=== PATIENT | female | born 1975 | race Caucasian/White ===

== ENCOUNTER 2022-08-11 05:05 | Observation (INO) ==
--- NOTE | 2022-08-09 15:06 | Anesthesiology Consultation ---
Date of Service August 09, 2022 Assessment & Plan (1) Encounter for pre-operative examination: Plan - COVID screening: Per auto carrier driver on 08/09/2022: Travel screen negative, no known COVID-19 positive contacts or current COVID-19 related symptoms in past 2 weeks. To surgeon's discretion if preop COVID testing is needed. Chart Review Chart Review: Acceptable Risk for Surgery and Patient NOT seen in Pre Admission Testing History Surgery Operation Date: 08/11/22 08:10 Proposed Procedures p Laparoscopic Cholecystectomy, Cholangiogram, Possible Open - Marcel Mejia MD, FACS Height/Weight Height: 5 ft 3.5 in Weight: 95.254 kg Allergies Allergy/AdvReac Type Severity Reaction Status Date / Time No Known Allergies Allergy Verified 08/09/22 14:45 Medications Home Medications Medication Instructions Recorded Confirmed Last Taken No Known Home Medications 08/09/22 08/09/22 Unknown Past Medical History Medical History (Updated 08/09/22 @ 15:04 by Dari Jara PA-C) Cholelithiases Renal cyst Past Family History Family History Mother Colorectal cancer Past Surgical History Surgical History History of tubal ligation History of wisdom tooth extraction Social History Smoking Status: Current every day smoker tobacco type: cigarettes Smoking cigarettes per day: 1 ppd Do You Dip or Chew Tobacco: No Hx Alcohol Use: No Hx Substance Use: No substance use type: does not use Lab Results Anesthesia Preop Results Results Anesthesia Widget: WBC 5.50 K/ul (4.8-10.8) 08/06/22 Hgb 15.5 g/dl (12.0-16.0) 08/06/22 Hct 44.5 % (37.0-47.0) 08/06/22 Plt 181 K/uL (130-400) 08/06/22 Na 137 mmol/L (136-145) 08/06/22 K 4.2 mmol/L (3.5-5.1) 08/06/22 Cl 107 mmol/L (98-107) 08/06/22 CO2 24 mmol/L (21-32) 08/06/22 BUN 9 mg/dl (6-23) 08/06/22 Creat 0.63 mg/dl (0.6-1.2) 08/06/22 Glucose Level 106 mg/dl (70-99(Fasting)) H 08/06/22 Urine Color Dark Yellow 08/06/22 Urine Appearance Cloudy (Clear) A 08/06/22 Urine pH 5.5 (4.5-7.5) 08/06/22 Urine Specific Pringle 1.023 (1.000-1.030) 08/06/22 Urine Protein Trace (Negative) H 08/06/22 Urine Glucose (UA) Negative (Negative) 08/06/22 Urine Ketones 1+ (Negative) H 08/06/22 Urine Blood 3+ (Negative) H 08/06/22 Urine Nitrite Negative (Negative) 08/06/22 Urine Bilirubin Negative (Negative) 08/06/22 Urine Urobilinogen Positive (Negative) H 08/06/22 Urine Leukocyte Esterase Trace (Negative) H 08/06/22 Urine WBC (Auto) 5-10 /hpf (0-5) H 08/06/22 Urine RBC (Auto) >30 /hpf (0-4) H 08/06/22 Urine Hyaline Casts (Auto) 1-5 /lpf (0-5) 08/06/22 Urine Epithelial Cells (Auto) >30 /lpf (0-5) H 08/06/22 Urine Bacteria (Auto) 2+ (Negative) H 08/06/22 SARS-CoV-2, RNA, NAAT NEGATIVE (NEGATIVE) 08/06/22 Testing Chest X-Ray Date: 08/06/22 *1view* No acute process
[2022-08-11] MEDS ORDERED: LR 15ML/HR IV SCH (06:00)
--- NOTE | 2022-08-11 06:21 | History & Physical Bridge Note ---
Date of Service August 11, 2022 History & Physical Bridge Note I have examined the patient, reviewed the History & Physical and in the interval since the performance of the History & Physical I have noted the following changes of clinical significance: no changes noted still nauseated since last seen SO at bedside ruq guarding all question answered
[2022-08-11] MEDS ORDERED: HYDROmorphone INJ 1 MG/ML SYRINGE IV PRN (06:46)
[2022-08-11] MEDS ORDERED: ePHEDrine sulfate 50 MG/ML AMP IV PRN (06:46)
[2022-08-11] MEDS ORDERED: NALOXONE HCL 0.4 MG/1 ML VIAL/CARP IV PRN (06:46)
[2022-08-11] MEDS ORDERED: LABETALOL HCL IV 5 MG/ML 20ML IV PRN (06:46)
[2022-08-11] MEDS ORDERED: PROMETHAZINE HCL 12.5 MG in SODIUM CHLORIDE 0.9% 50 ML IV PRN (06:46)
[2022-08-11] MEDS ORDERED: ONDANSETRON INJ 2 MG/ML 2 ML VIAL IV PRN ×2 (06:46→10:03)
[2022-08-11] MEDS ORDERED: FLUMAZENIL 0.1 MG/1 ML 10 ML VIAL IV PRN (06:46)
[2022-08-11] MEDS ORDERED: ATROPINE SULFATE 0.1 MG/ML 10ML SYR IV PRN (06:46)
[2022-08-11] MEDS ORDERED: MIDAZOLAM HCL 1 MG/ML 2ML VIAL ONE (06:48)
[2022-08-11] MEDS ORDERED: fentaNYL citrate PF 100 MCG/2 ML VIAL ONE ×2 (06:49→07:14)
[2022-08-11] MEDS ORDERED: LIDOCAINE 1%/EPINEPHRINE 1:100,000 20 ML VIAL ONE (06:56)
[2022-08-11] MEDS ORDERED: ACETAMINOPHEN 1000 MG/100 ML IV IV ONE (07:03)
[2022-08-11] MEDS ORDERED: ONDANSETRON INJ 2 MG/ML 2 ML VIAL ONE (07:12)
[2022-08-11] MEDS ORDERED: DEXAMETHASONE SOD INJ 4 MG/ML VIAL ONE (07:12)
[2022-08-11] MEDS ORDERED: ROCURONIUM BROMIDE 10 MG/ML 5 ML VIAL IV ONE (07:12)
[2022-08-11] MEDS ORDERED: PROPOFOL IV EMULSION 10 MG/ML 20 ML VIAL IV ONE (07:12)
[2022-08-11] MEDS ORDERED: LIDOCAINE 2% 2 ML VIAL/AMP(20MG/ML) INFIL ONE (07:12)
[2022-08-11] MEDS ORDERED: SUGAMMADEX SODIUM 200 MG/2 ML VIAL IV ONE (07:13)
[2022-08-11] MEDS ORDERED: PHENYLEPHRINE HCL 10 MG/ML VIAL ONE (07:33)
[2022-08-11] MEDS ORDERED: GLUCAGON FOR INJ 1 MG VIAL ONE (07:58)
[2022-08-11] MEDS ORDERED: KETOROLAC 30 MG/ML VIAL ONE (08:29)
--- NOTE | 2022-08-11 08:31 | Post Operative Brief Note ---
Immediate Post Op Note v1 Date of Surgery August 11, 2022 Pre & Post Diagnosis Operation Date: 08/11/22 07:00 Pre-Op Diagnosis: Cholelithiasis Post-Op Diagnosis: Cholelithiasis I identified the patient and participated in the time-out.: Yes Procedure Operation Date: 08/11/22 07:00 Actual Procedures p Laparoscopic Cholecystectomy, Cholangiogram(Not Applicable) - Marcel Mejia MD, FACS Surgeon Marcel Mejia MD, FACS [employer] [place] KLINE Estimated Blood Loss 10 Findings Consistent with Post-Op Diagnosis Drains Pauline Drain (RUQ 19f pauline drain)
[2022-08-11] MEDS: fentaNYL citrate PF 100 MCG/2 ML VIAL IV PRN ×2 (08:52→08:57)
--- NOTE | 2022-08-11 09:17 | Operative Report ---
PG Post Operative Report Pre & Post Diagnosis Operation Date: 08/12/22 11:40 <No data on this case meets the specified criteria> I identified the patient and participated in the time-out.: Yes Procedure Operation Date: 08/12/22 11:40 <No data on this case meets the specified criteria> Laparoscopic cholecystectomy intraoperative cholangiogram The patient was brought into the operating theater general trach anesthesia supine position the abdomen was prepped byline solution properly draped systemic antibiotics on board a timeout was had we made a small incision supraumbilically sufficient to accommodate 2 Sara clamps that were inserted to grab the anterior abdominal wall sufficiently to place a Veress needle followed by CO2 followed by 5 mm trocar point of entry specter no injury identified on the regularization 5 mm epigastric to 5 mm subcostal ports were inserted with preemptive local analgesic the patient at almost an intrahepatic gallbladder the left lobe of the liver was encapsulating good portion of it the usual right lateral port to grab the gallbladder and elevated then the left lobe of the liver needed to be mobilized with use necessitated placing another 5 mm port on the right realization left upper quadrant so that we can insert a fan retractor gallbladder was placed under traction we took our dissection towards the neck of the gallbladder and identified a very large cystic duct well away from the common bile duct we could visualize therefore at this point we encircled the cystic duct with a right angle clamp so we were able to free it from the surrounding tissue placed a 5 mm clip proximally a small opening cystic duct was made #4 urethral catheter transversing abdominal wall and Angiocath was positioned serial x-rays were taken which showed obstruction of the distal common bile duct very long corkscrew cystic duct no obvious large filling defects appreciated but the common bile duct was dilated at this point I elected to flush it after given glucagon and taken multiple x-rays we really were not able to clear the duct of any obstruction at this point we remove the urethral catheter and migrated down the cystic duct bed to able to doubly clipped securely the remaining cystic duct gallbladder was then removed in the antegrade fashion identifying the artery doubly clipped and its in some accessory artery similarly clipping taken out the gallbladder leaving much posterior peritoneum was possible and placed the gallbladder in an Endopouch and taken out intact through the epigastric port patient has significant amount of bilirubinate stones noticed in the specimen subhepatic suprahepatic area was then suctioned out copiously in anticipation of the ERCP I elected to place a 19 Davy drain subhepatic leak taken out laterally on his right upper quadrant trocar site fascia skin edges 2-0 silk the wounds were then checked for entry site bleeding of the trocars and they were all free of any bleeding as we individually removed we had placed the camera right upper quadrant trocar to visualize the initial entry in the umbilical area which was no injury identified wounds were closed with 3-0 Vicryl Steri-Strips applied procedure was tolerated well by the patient estimate blood loss 10 cc addendum Shea Schilling physician training program assistant was present throughout the procedure and helped the retraction exposure wound closure Surgeon Marcel Mejia MD, FACS [employer] [place] KLINE Estimated Blood Loss 10 Findings Consistent with Post-Op Diagnosis Chronic cholecystitis cholelithiasis choledocholithiasis Specimens Gallbladder and cannot Drains 19 round Davy drain Complications None Indications Chronic cholecystitis cholelithiasis with abdominal this pain Description of Procedure merda I attest to the content of the Intraoperative Record and any orders documented therein. Any exceptions are noted below.
--- NOTE | 2022-08-11 09:29 | Anesthesiology Progress Note ---
Date of Service August 11, 2022 Anesthesia Post Procedure Vital Signs Vital Signs: Temp Pulse Resp BP Pulse Ox O2 Del Method O2 Flow Rate 08/11/22 09:05 73 21 137/69 100 Oxymask 2 08/11/22 09:15 36.2 C L 72 19 123/68 97 Room Air 08/11/22 08:55 77 20 128/79 98 Oxymask 5 08/11/22 08:47 36.3 C L 86 26 H 143/76 H 97 Oxymask 5 08/11/22 05:32 36.7 C 74 20 119/75 100 Room Air Pain Intensity Abdomen: Pain Intensity: 8 Shoulder: Pain Intensity: 6 Transfer of Care Handoff Completed per policy Notes Mental Status: alert / awake / arousable Patient Amnestic to Procedure: Yes Nausea / Vomiting: adequately controlled Pain: adequately controlled Airway Patency, RR, SpO2: stable & adequate BP & HR: stable & adequate Hydration State: stable & adequate Anesthetic Complications: no major complications apparent
[2022-08-11] MEDS ORDERED: MoRPHine SULFATE 4 MG/ML 1 ML CARP\\VIAL IV PRN (10:03)
[2022-08-11] MEDS ORDERED: GLUCOSE 10 TAB/TUBE PO PRN (10:03)
[2022-08-11] MEDS ORDERED: MoRPHine SULFATE 2 MG/ML CARP IV PRN (10:03)
[2022-08-11] MEDS ORDERED: CARBOHYDRATES FOR HYPOGLYCEMIA PO PRN (10:03)
[2022-08-11] MEDS ORDERED: ACETAMINOPHEN 1,000 MG/100 ML VIAL IV PRN (10:03)
[2022-08-11] MEDS ORDERED: DEXTROSE 50% 50 ML SYRINGE IV PRN (10:03)
[2022-08-11] MEDS ORDERED: GLUCAGON FOR INJ 1 MG VIAL SQ PRN (10:03)
[2022-08-11] MEDS ORDERED: GLUCOSE 40% GEL 15 GM TUBE PO PRN (10:03)
--- NOTE | 2022-08-11 10:21 | Fluoroscopy Report ---
[place] cholangiogram OR CLINICAL HISTORY: Cholangiogram. COMPARISON STUDY: Right upper quadrant ultrasound August 06, 2022. FLUOROSCOPY TIME: 6 seconds. Ka, r: 1.42 mGy FLUOROSCOPIC IMAGES: 5 FINDINGS: Fluoroscopy was provided during intraoperative cholangiogram. The cystic duct was cannulate d and contrast was injected. No definite filling defects within the common bile duct are identified. No contrast within the duodenum is noted. Intrahepatic bile ducts are partially opacified. IMPRESSION: No definite filling defects within the common bile duct however no contrast within the d uodenum. ACT 112: Negative or not required by law. Electronically signed by: Abdifatah Juarez M.D. 08/11/2022 10:20 AM
--- NOTE | 2022-08-11 11:01 | Gastrointestinal Consultation ---
Date of Consultation August 11, 2022 Assessment & Plan (1) Choledocholithiasis: Plan 1. Clear liquids po today. 2. NPO after midnight 3. Plan for ERCP tomorrow by Dr. Ray. Supervising Physician Co-Signing Physician Notes I performed a history and physical examination of the patient today, including specifically on physical exam - soft abdomen. I have discussed the patient's management with the advanced practitioner. Please refer to the nurse practitioner's note for the documented findings and plan of care. ERCP tomorrow. History of Present Illness Reason for Consultation: +IOC Requesting Physician: Shea Corbett PA-C Attending Physician: Marcel Mejia MD, [facility] History of Present Illness Ms. Cheli Adams is a 46 yr old female who underwent Lap choley this morning by Dr. Mejia. Intra operative cholangiogram suggested a stone in the bile duct. GI is consulted to arrange ERCP. Pt reports 14 days of RUQ pain, waxing and waning but present every day, sought care at [facility] w chronic cholecystitis CT'ed w plans to see surgeon, but pain worsened and she presented to [facility] where cholecystectomy was completed. Pt "feels better now," tells me just pain at the incisions. She is awake, alert. Her is at the bedside. Allergies Allergy/AdvReac Type Severity Reaction Status Date / Time No Known Allergies Allergy Verified 08/11/22 05:36 Home Medications Medication Instructions Recorded Confirmed Type No Known Home Medications 08/09/22 08/11/22 History Patient History Medical History (Updated 08/11/22 @ 11:03 by CARLOS Goff) Cholelithiases Renal cyst Surgical History History of tubal ligation History of wisdom tooth extraction Family History Mother Colorectal cancer Social History Smoking Status: Current every day smoker Tobacco Type: Cigarettes Cigarettes Per Day: 1 ppd; Second Hand Exposure: No; Do You Dip or Chew Tobacco: No; Tobacco Cessation Education Requested by Patient: No Hx Alcohol Use: No Hx Substance Use: No Preferred Language: Uzbek Communication Ability: Effective General Maintenance Technician Required: No Beliefs That Will Affect Care: None Current Living Situation: Family current occupational status: unemployed How many Children do You have: 2 Feels Safe at Home: Yes Safety Concerns: Feels Safe At This Time during the past year weight has: decreased > 10 lbs Assistive Devices: Denture - Upper and Denture - Lower Assistive Devices Comment: lower partial Review of Systems Review of Systems: ROS: Gen: Denies weakness, fevers, weight loss Eyes: No eye redness, or pain, no recent vision changes Resp: No SOB, no cough Cardio: No palpitations/irregular beats, no chest pain GI: As per HPI, otherwise negative. : Denies pain on urination Skin: No jaundice, itching or new rashes Physical Exam Constitutional: WD/WN, vitals as above Eyes: PERRL, conjunctivae normal, anicteric sclerae ENMT: external ear and nose normal, oropharynx normal Neck: trachea midline, no thyromegaly Respiratory: normal respiratory effort, lungs clear to auscultation Cardiovascular: RRR, no murmur, no edema Gastrointestinal (Abdomen): Hypoactive BS present, abd is soft, non distended. Dressings are dry. Skin: no rashes, warm and dry Neurologic: PERRL, EOMI, accommodation nl, no face palsy, no dysarthria Psychiatric: A+Ox3, euthymic affect Lymphatic: no cervical or axillary lymphadenopathy Results & Data Vital Signs (Past 12 Hours) Vital Signs Temp Pulse Pulse Resp BP Pulse Ox O2 Del Method 08/11/22 10:25 36.4 C L 65 18 124/78 96 Room Air 08/11/22 09:05 73 21 137/69 100 Oxymask 08/11/22 09:35 71 19 120/65 96 Room Air 08/11/22 09:25 79 20 112/61 95 Room Air 08/11/22 09:15 36.2 C L 72 19 123/68 97 Room Air 08/11/22 08:55 77 20 128/79 98 Oxymask 08/11/22 08:47 36.3 C L 86 26 H 143/76 H 97 Oxymask 08/11/22 05:32 36.7 C 74 20 119/75 100 Room Air O2 Flow Rate 08/11/22 10:25 08/11/22 09:05 2 08/11/22 09:35 08/11/22 09:25 08/11/22 09:15 08/11/22 08:55 5 08/11/22 08:47 5 08/11/22 05:32 Laboratory Results Labs 08/06/2022 WBC 5, Hb 15, HCT 44, PLT S21, NA 137, K4.2, CL 107, CO2 24, BUN 9, CR 0.63, glucose 106, T. bili 0.8, AST 76, ALT 41, alk phos 59 Diagnostic Findings Cholangiogram today: No definite filling defects within the common bile duct however no contrast within the duodenum.
[2022-08-11] MEDS: cefOXitin 2,000 MG in DEXTROSE 5% 50 ML IV SCH ×3 (11:19→21:48)
[2022-08-11] MEDS: LACTATED RINGER'S 1,000 ML IV SCH ×2 (11:19→19:42)
[2022-08-12] MEDS: cefOXitin 2,000 MG in DEXTROSE 5% 50 ML IV SCH ×2 (05:09→10:30)
[2022-08-12 07:34] LABS: Basophils # (auto) 0.03 K/uL (0-0.2); Basophils % (auto) 0.6 %; Eosinophils # (auto) 0.05 K/uL (0-0.50); Hematocrit (blood only) 38.3 % (37.0-47.0); Hemoglobin 13.3 g/dl (12.0-16.0); Immature Granulocytes # (auto) 0.01 K/uL (0.01-0.20); Immature Granulocytes % (auto) 0.2 %; Lymphocytes # (auto) 1.77 K/uL (1.2-3.4); Mean Corpuscular Hemoglobin 31.1 pg (25.0-34.0); Mean Corpuscular Hgb Conc 34.7 g/dL (32.0-36.0); Mean Corpuscular Volume 89.5 fL (80.0-100.0); Mean Platelet Volume 12.4 fL (9.4-12.4); Monocytes # (auto) 0.33 K/uL (0.11-0.59); Monocytes % (auto) 6.9 %; Neutrophils % (auto) 54.3 %; Platelet Count 156 K/uL (130-400); RDW Coefficient of Variation 12.3 % (11.5-14.5); RDW Standard Deviation 40.1 fL (36.4-46.3); Red Blood Count 4.28 M/uL (4.20-5.40); White Blood Count 4.79 K/ul (4.8-10.8)
--- NOTE | 2022-08-12 07:35 | Surgery Progress Note ---
Date of Service August 12, 2022 Assessment & Plan (1) Choledocholithiasis: Plan: Patient is first postoperative day status post laparoscopic cholecystectomy intraoperative cholangiogram there revealed common bile duct dilated with no contrast into the duodenum despite given glucagon This was discussed with the patient for need an ERCP which was discussed with the residential roofer yesterday and is planned for today Plan Once the ERCP is completed and okay with gastroenterology the patient to be discharged home instructions regarding what to her regarding her Davy drain management and follow-up in the office on Monday for drain removal Activity and pain management was similarly discussed with her Instructions went over with the patient Admission and Anticipated Discharge Date Admission Date: August 11, 2022 Subjective No complaints some abdominal soreness Physical Exam Physical Exam: Alert coherent sclera nonicteric Abdomen benign serous slightly sanguinous drainage from the Davy drain Results & Data Vital Signs (Past 12 Hours) Vital Signs Temp Pulse Pulse Resp BP BP Pulse Ox 08/12/22 07:28 36.5 C 63 16 131/82 96 08/12/22 04:00 37.0 C 65 16 126/77 97 08/12/22 00:00 36.9 C 72 16 124/79 98 08/11/22 19:50 36.6 C 65 18 124/80 97 O2 Del Method 08/12/22 07:28 Room Air 08/12/22 04:00 Room Air 08/12/22 00:00 Room Air 08/11/22 19:50 Room Air
[2022-08-12 07:57] LABS: Albumin Level 3.3 gm/dl (3.4-5.0); BUN Creatinine Ratio 16.4 (10-20); Bilirubin Direct 2.3 mg/dl (0-0.2); Bilirubin,Total 3.8 mg/dl (0.2-1.0); Calcium 8.6 mg/dl (8.6-10.3); Creatinine Clr Calc Pharmacy 143.2 ml/min; Est GFR (African American) 131.3 ml/min; Est GFR (Non-African American) 113.3 ml/min; Potassium 3.3 mmol/L (3.5-5.1); Total Protein 5.5 gm/dl (6.0-8.3)
[2022-08-12] MEDS: LACTATED RINGER'S 1,000 ML IV SCH (08:41)
--- NOTE | 2022-08-12 10:27 | History & Physical Bridge Note ---
Date of Service August 12, 2022 History & Physical Bridge Note I have examined the patient, reviewed the History & Physical and in the interval since the performance of the History & Physical I have noted the following changes of clinical significance: no changes noted ERCP Patient was explained in detail regarding risks, benefits, limitations and alternatives of the above endoscopic procedure. Risks of intravenous sedation used for procedure were also explained. Risks include, but not limited to perforation, bleeding, infection, respiratory distress, cardiac arrest and . Patient is also aware about the possibility of missed lesion. Patient's questions were answered. The patient verbalized understanding the information and agreed to undergo the procedure.
[2022-08-12] MEDS ORDERED: DEXAMETHASONE SOD INJ 4 MG/ML VIAL ONE (11:05)
[2022-08-12] MEDS ORDERED: PROPOFOL IV EMULSION 10 MG/ML 20 ML VIAL IV ONE (11:05)
[2022-08-12] MEDS ORDERED: fentaNYL citrate PF 100 MCG/2 ML VIAL ONE (11:05)
[2022-08-12] MEDS ORDERED: LIDOCAINE 2% 2 ML VIAL/AMP(20MG/ML) INFIL ONE (11:05)
[2022-08-12] MEDS ORDERED: ONDANSETRON INJ 2 MG/ML 2 ML VIAL ONE (11:05)
[2022-08-12] MEDS ORDERED: MIDAZOLAM HCL 1 MG/ML 2ML VIAL ONE (11:05)
[2022-08-12] MEDS ORDERED: INDOMETHACIN 50 MG SUPP PR ONE (11:07)
[2022-08-12] MEDS ORDERED: ATROPINE SULFATE 0.1 MG/ML 10ML SYR IV PRN (11:15)
[2022-08-12] MEDS ORDERED: fentaNYL citrate PF 100 MCG/2 ML VIAL IV PRN (11:15)
[2022-08-12] MEDS ORDERED: PROMETHAZINE HCL 6.25 MG in SODIUM CHLORIDE 0.9% 50 ML IV PRN (11:15)
[2022-08-12] MEDS ORDERED: ONDANSETRON INJ 2 MG/ML 2 ML VIAL IV PRN (11:15)
--- NOTE | 2022-08-12 11:15 | Anesthesiology Consultation ---
Date of Service August 12, 2022 Assessment & Plan (1) Encounter for pre-operative examination: Chart Review Chart Review: Acceptable Risk for Surgery History Surgery Operation Date: 08/11/22 07:00 Proposed Procedures p Laparoscopic Cholecystectomy, Cholangiogram, Possible Open - Marcel Mejia MD, FACS Operation Date: 08/12/22 11:40 Proposed Procedures p Endoscopic Retrograde Cholangiopancreato - Jane Ray MD Height/Weight Height: 5 ft 3.5 in Weight: 95.3 kg Allergies Allergy/AdvReac Type Severity Reaction Status Date / Time No Known Allergies Allergy Verified 08/11/22 05:36 Medications Home Medications Medication Instructions Recorded Confirmed Last Taken oxycodone-acetaminophen 5 mg-325 1 - 2 tab PO .q4-6h PRN pain, for 08/11/22 Unknown mg tablet (Percocet) initial therapy, max 6 tabs per day #12 tabs Active Medications Generic Name Dose Route Start Last Admin Trade Name Freq PRN Reason Stop Dose Admin Acetaminophen 1,000 mg in 100 mls @ 400 mls/hr 08/11/22 10:03 08/11/22 17:20 Ofirmev IV 08/14/22 10:02 Infused Q8H PRN Infusion Mild Pain (Scale 1, 2, 3) Cefoxitin Sodium 2,000 mg/ 60 mls @ 100 mls/hr 08/11/22 10:30 08/12/22 11:08 Dextrose IV 08/21/22 10:29 Infused Q6H DELMAR Infusion Protocol Lactated Ringer's 1,000 mls @ 80 mls/hr 08/11/22 10:03 08/12/22 08:41 Lr IV 09/10/22 10:02 80 mls/hr .[id number] DELMAR Administration NPO Date Last Intake of Fluids: 08/11/22 Time Last Intake of Fluids: 23:59 Date Last Intake of Solids: 08/10/22 Time Last Intake of Solids: 15:00 Past Medical History Medical History Cholelithiases Renal cyst Past Family History Family History Mother Colorectal cancer Past Surgical History Surgical History History of tubal ligation History of wisdom tooth extraction Hx laparoscopic cholecystectomy (08/11/22) Laparoscopic cholecystectomy intraoperative cholangiogram Dr. Romo Social History Smoking Status: Current every day smoker tobacco type: cigarettes Smoking cigarettes per day: 1 ppd Do You Dip or Chew Tobacco: No Hx Alcohol Use: No Hx Substance Use: No substance use type: does not use Physical Exam Vital Signs Last Vital Signs Temp 36.7 C 08/12/22 10:55 Pulse 66 08/12/22 10:55 Resp 20 08/12/22 10:55 BP 124/79 08/12/22 10:55 Pulse Ox 96 08/12/22 10:55 O2 Del Method Room Air 08/12/22 10:55 O2 Flow Rate 2 08/11/22 09:05 Testing Laboratory Results 08/12/22 06:39 08/12/22 06:39
[2022-08-12] MEDS ORDERED: SUCCINYLCHOLINE CHLORIDE 20 MG/ML 10 ML VIAL IV ONE (11:46)
--- NOTE | 2022-08-12 11:46 | Operative Report ---
Post Operative Report Pre & Post Diagnosis Operation Date: 08/12/22 11:40 Pre-Op Diagnosis: Cholelithaisis I identified the patient and participated in the time-out.: Yes Procedure Operation Date: 08/12/22 11:40 Actual Procedures p Endoscopic Retrograde Cholangiopancreato - Jane Ray MD Surgeon Jane Ray MD Visual Merchandising Specialist [place] KLINE Estimated Blood Loss 0 Findings See Below (Choledocholithiasis removed) Specimens None Description of Procedure ERCP I attest to the content of the Intraoperative Record and any orders documented therein. Any exceptions are noted below.
--- NOTE | 2022-08-12 11:56 | Fluoroscopy Report ---
[place] ERCP biliary ductal CLINICAL HISTORY: ERCP IN OR TECHNIQUE: 9 views were obtained with the C-arm in the OR with the above procedure. Total fluoroscopy time was 68.2 seconds. Radiation dose was 33.1 mGy. Comparison: Comparison is made to [facility] 08/11/2022 FINDINGS/IMPRESSION: Intraoperative images were obtained of ERCP. Dilated common bile duct is noted. Please correlate with intraoperative fluoroscopy and operative report. ACT 112: Negative or not required by law. Electronically signed by: Raymundo Kim M.D. 08/12/2022 11:55 AM
--- NOTE | 2022-08-12 11:57 | GI REPORT ---
Patient Name: Cheli Dennis Procedure Date: 08/12/2022 11:17 AM Date of : 1975 Admit Type: Inpatient Age: 46 Gender: Female Attending MD: Jane Ray MD, Procedure: ERCP Providers: Jane Ray MD Referring MD: Marcel Mejia Indications: Filling defect on intraoperative cholangiogram Medicines: Propofol per Anesthesia Complications: No immediate complications. Estimated Blood Loss: Estimated blood loss: none. Procedure: Pre-Anesthesia Assessment: - Prior to the procedure, a History and Physical was performed, and patient medications, allergies and sensitivities were reviewed. The patient's tolerance of previous anesthesia was reviewed. - The risks and benefits of the procedure and the sedation options and risks were discussed with the patient. All questions were answered and informed consent was obtained. - Patient identification and proposed procedure were verified prior to the procedure by the physician and the nurse. The procedure was verified in the procedure room. - Pre-procedure physical examination revealed no contraindications to sedation. After obtaining informed consent, the scope was passed under direct vision. Throughout the procedure, the patient's blood pressure, pulse, and oxygen saturations were monitored continuously. The Duodenoscope was introduced through the mouth, and advanced to the duodenum and used to inject contrast into the bile duct. The ERCP was accomplished without difficulty. The patient tolerated the procedure well. Findings: A window shade cutter and mounter film of the abdomen was obtained. Surgical clips, consistent with a previous cholecystectomy, were seen in the area of the right upper quadrant of the abdomen. The esophagus was successfully intubated under direct vision. The scope was advanced to a normal major papilla in the descending duodenum without detailed examination of the pharynx, larynx and associated structures, and upper GI tract. The upper GI tract was grossly normal. The major papilla was on the rim of a diverticulum. A 0.025 inch x 270 cm angled Visiglide wire was passed into the biliary tree. The short-nosed traction sphincterotome was passed over the guidewire and the bile duct was then deeply cannulated. Contrast was injected. I personally interpreted the bile duct images. Ductal flow of contrast was adequate. Image quality was adequate. Contrast extended to the main bile duct. Opacification of the entire biliary tree except for the gallbladder was successful. The maximum diameter of the ducts was 10 mm. The lower third of the main bile duct contained one stone. Biliary sphincterotomy was made with a monofilament traction (standard) sphincterotome using ERBE electrocautery. There was no post-sphincterotomy bleeding. The biliary tree was swept with a 15 mm balloon starting at the bifurcation. One stone was removed. No stones remained. Indomethacin 100 mg was given via suppository to decrease the risk of post-ERCP pancreatitis (PEP). Impression: - Choledocholithiasis was found. Complete removal was accomplished by biliary sphincterotomy and balloon extraction. Recommendation: - [facility]. - Advance diet as tolerated. - Monitor LFTs. - Return to referring physician. - Recall GI if needed. Jane Ray MD 08/12/2022 11:57:24 AM This report has been signed electronically. Note Initiated On: 08/12/2022 11:17 AM Number of Addenda: 0 I attest to the content of the Intraoperative Record and orders documented therein, exceptions below {[id number]}
--- NOTE | 2022-08-12 12:11 | Anesthesiology Progress Note ---
Date of Service August 12, 2022 Anesthesia Post Procedure Vital Signs Vital Signs: Temp Pulse Pulse Pulse Resp BP BP 08/12/22 12:10 67 20 129/82 08/12/22 12:00 79 19 134/82 08/12/22 11:53 36.1 C L 90 16 129/84 08/12/22 10:55 36.7 C 66 20 124/79 08/12/22 07:28 36.5 C 63 16 131/82 08/12/22 04:00 37.0 C 65 16 126/77 08/12/22 00:00 36.9 C 72 16 124/79 08/11/22 19:50 36.6 C 65 18 124/80 08/11/22 16:00 37 C 64 16 116/70 08/11/22 16:17 36.7 C 68 18 128/62 Pulse Ox O2 Del Method O2 Flow Rate 08/12/22 12:10 98 Room Air 08/12/22 12:00 98 Room Air 08/12/22 11:53 96 Oxymask 6 08/12/22 10:55 96 Room Air 08/12/22 07:28 96 Room Air 08/12/22 04:00 97 Room Air 08/12/22 00:00 98 Room Air 08/11/22 19:50 97 Room Air 08/11/22 16:00 98 Room Air 08/11/22 16:17 96 Room Air Pain Intensity Abdomen: Pain Intensity: 3 Shoulder: Pain Intensity: 6 Transfer of Care Handoff Completed per policy Notes Mental Status: alert / awake / arousable Patient Amnestic to Procedure: Yes Nausea / Vomiting: adequately controlled Pain: adequately controlled Airway Patency, RR, SpO2: stable & adequate BP & HR: stable & adequate Hydration State: stable & adequate Anesthetic Complications: no major complications apparent
== END 2022-08-12 15:21 | disposition home or self-care (01) ==
LOC: 3N 05:05 → ASU 05:05